=== PATIENT | male | born 1960 | race Caucasian/White ===

== ENCOUNTER 2022-11-05 12:53 | Emergency (ER) | payer OTHER ==
[~2022-11-05] VITALS: Ht 182.9 cm; Wt 86.2 kg
[2022-11-05 14:30] VITALS: BP 158/101
[2022-11-05] MEDS ORDERED: MAGNESIUM OXID500 MG PO (14:33)
[2022-11-05] MEDS ORDERED: Naltrexone HCl50 MG PO (14:33)
[2022-11-05] MEDS ORDERED: BUPR100 PO (14:33)
[2022-11-05] MEDS ORDERED: B-12500 MC2 PO (14:33)
[2022-11-05] MEDS ORDERED: B-1100 M1 PO (14:34)
== END 2022-11-05 16:56 | disposition home or self-care (01) ==
LOC: ER 12:53
DX: F10.129 Alcohol abuse with intoxication, unspecified (principal)
CPT/HCPCS: 96374; 99284-25; G0480; J2405